=== PATIENT | female | born 2000 | race Caucasian/White ===

== ENCOUNTER → 2022-04-07 09:54 | Outpatient (CLI) | payer SELFPAY ==
--- NOTE | ~2022-04-07 | US_ITS ---
EXAMINATION: US OB <= 14 weeks fetus DATE: 04/07/2022 10:21 INDICATION: Pelvic pain for 2 weeks TECHNIQUE: Real-time transabdominal and transvaginal obstetric ultrasound. FINDINGS: No prior studies for comparison. The uterus measures 12.7 x 5.4 x 8.0 cm. There is an intrauterine gestational sac, with pole id entified. There is a subchorionic hemorrhage measuring 2.5 x 5.1 x 1.1 cm. The crown rump length giovanny ures 1.75 cm, which correlates with a estimated gestational age of 8 weeks 1 day. heart tones are identified measuring 169 bpm. The ovaries are within normal limits. IMPRESSION: 1. SL IUP with an EGA of 8 weeks, 1 days (EDC by current ultrasound of 11/16/2022). 2: Subchorionic hemorrhage measuring 5.1 x 2.5 x 1.1 cm. Reviewed, dictated and finalized at location B. IMPRESSION: 1. SL IUP with an EGA of 8 weeks, 1 days (EDC by current ultrasound of 11/17/19). 2: Subchorionic hemorrhage measuring 5.1 x 2.5 x 1.1 cm.
== END ==
PROVIDERS: PCP Advanced Practice Midwife; Visit Provider Advanced Practice Midwife
DX: R10.2 Pelvic and perineal pain (principal); Z34.91 Encounter for supervision of normal pregnancy, unspecified, first trimester; Z3A.01 Less than 8 weeks gestation of pregnancy
CPT/HCPCS: 76801

== ENCOUNTER → 2022-04-21 09:09 | Outpatient (CLI) | payer OTHER, SELFPAY ==
--- NOTE | ~2022-04-21 | US_ITS ---
EXAMINATION: US OB <= 14 weeks fetus DATE: 04/21/2022 09:30 INDICATION: Subchorionic hematoma TECHNIQUE: Real-time pelvic ultrasound utilizing both a transvaginal and transabdominal probe was pe rformed. The interpreting radiologist was not present for the study. COMPARISON: 04/07/2022 FINDINGS: The uterus measures 13.5 x 6.3 x 10.0 cm cm. There is an intrauterine gestational sac. A yolk sac an d pole are identified. The crown rump length measures 3.2, which correlates with an estimated g estational age of 10 weeks and 1 days which is exactly concordant with estimated gestational age base d upon the prior ultrasound. heart motion is identified measuring 176 beats per minute (bpm) by M-mode Doppler. Persistent 3.6 x 1.0 x 1.3 cm hypoechoic subchorionic hematoma along the right cepha lad margin of the gestational sac. The right ovary measures 3.0 x 1.9 x 2.4 cm. The left ovary measures 2.5 x 1.9 x 2.2 cm. Vascular darline w identified in both ovaries on color Doppler There is no free fluid in the pelvis. IMPRESSION: 1. Single living fetus with heart rate of 176 bpm. 2. Persistent small subchorionic hematoma. 3. Gestational age by ultrasound of 10 weeks 1 day(s) with ultrasound estimated date of delivery ([facility] ) of 11/16/2022. Reviewed, dictated and finalized at location B. IMPRESSION: 1. Single living fetus with heart rate of 176 bpm. 2. Persistent small subchorionic hematoma. 3. Gestational age by ultrasound of 10 weeks 1 day(s) with ultrasound estimated date of delivery ([place]) of 11/16/2022.
== END ==
PROVIDERS: PCP Obstetrics & Gynecology Gynecology; Visit Provider Obstetrics & Gynecology Gynecology
DX: O20.8 Other hemorrhage in early pregnancy (principal); Z3A.10 10 weeks gestation of pregnancy
CPT/HCPCS: 76801

== ENCOUNTER → 2022-05-08 13:06 | Outpatient (CLI) | payer OTHER, SELFPAY ==
--- NOTE | ~2022-05-08 | US_ITS ---
EXAMINATION: US OB <= 14 weeks fetus DATE: 05/08/2022 13:27 INDICATION: Follow-up subchorionic hematoma TECHNIQUE: Real-time transabdominal obstetric ultrasound. FINDINGS: Ultrasound dated 04/21/2022 The uterus measures 12.7 x 10.1 x 10 cm. There is an intrauterine gestational sac, with pole id entified. The crown rump length measures 6.56 cm. heart tones are identified measuring 145 BPM . Small persistent subchorionic hemorrhage measuring 12 x 6 x 5 mm. There are ovaries are normal. IMPRESSION: 1. SL IUP with an EGA of 12 weeks, 4 days (EDC by initial ultrasound of 11/16/2022). 2: Small subchorionic hemorrhage measuring 12 x 6 x 5 mm. Reviewed, dictated and finalized at location B. IMPRESSION: 1. SL IUP with an EGA of 12 weeks, 4 days (EDC by initial ultrasound of 023). 2: Small subchorionic hemorrhage measuring 12 x 6 x 5 mm.
== END ==
LOC: EXPGOSHRAD 13:08
PROVIDERS: PCP Obstetrics & Gynecology Gynecology; Visit Provider Obstetrics & Gynecology Gynecology
DX: O36.8911 Maternal care for other specified fetal problems, first trimester, fetus 1 (principal); Z3A.12 12 weeks gestation of pregnancy
CPT/HCPCS: 76801

== ENCOUNTER → 2022-05-29 09:55 | Outpatient (CLI) | payer OTHER, SELFPAY ==
--- NOTE | ~2022-05-29 | US_ITS ---
US OB limited 05/29/2022 10:22 Indication: Follow-up subchorionic hematoma Procedure: High-resolution Limited obstetrical ultrasound Comparison: 05/08/2022 Findings: There is a single living intrauterine in variable presentation. heart rate is 168 BPM. Placenta is anterior. There are 2 small subchorionic hemorrhages measuring 1.4 x 0.4 x 1 cm and the second measuring 1.4 x 0.9 x 0.4 cm. Impression: 1: Small subchorionic hemorrhages. 2: Single living intrauterine in variable presentation. Reviewed, dictated and finalized at location A. R TRAINER Impression: 1: Small subchorionic hemorrhages. 2: Single living intrauterine in variable presentation.
== END ==
PROVIDERS: PCP Obstetrics & Gynecology Gynecology; Visit Provider Obstetrics & Gynecology Gynecology
DX: O36.8911 Maternal care for other specified fetal problems, first trimester, fetus 1 (principal)
CPT/HCPCS: 76815

== ENCOUNTER 2022-06-02 12:26 | Emergency (ER) | payer OTHER, SELFPAY ==
[2022-06-02 13:00] VITALS: BP 126/65; PULSE 88; RESP 18; TEMP 36.6; O2SAT 100
--- NOTE | 2022-06-02 13:05 | ED.URI ---
HPI - URI/Sore Throat General Chief Complaint: Upper Respiratory Infection Stated Complaint: Coughing, Chest Pain,SOB Time Seen by Provider: 06/02/22 12:29 Source: patient Mode of arrival: ambulatory Limitations: no limitations History of Present Illness HPI Narrative: Ms. Ortiz is a 21-year-old female patient presenting to the clinic today with complaints of coughing, chest pressure, and shortness of breath since yesterday. She reports she has had nasal congestion x1 week. She is 16 weeks . She denies any fever but does have a slight sore throat. She is able to speak in full sentences in her SpO2 is 100% on room air MD elicited complaint: cough and other ( shortness of breath and chest pain) Related Data Home Medications Medication Instructions Recorded Confirmed prenat.vits,josé luis,[id number] 1 tablet PO DAILY 05/27/22 06/02/22 Allergies Allergy/AdvReac Type Severity Reaction Status Date / Time Fentanyl Allergy Unknown uknown Uncoded 06/02/22 13:11 Review of Systems Review of Systems: Pertinent positives per HPI. Patient denies any fever, chills, rash, headache, visual changes, dizziness, cough, shortness of breath, chest pain, palpitations, nausea, vomiting, diarrhea, constipation, abdominal pain, or any urinary issues. [facility] Past Medical History Medical History Anemia Family History Family History Grandparent Breast cancer Bone cancer Hypertension Heart problem Social History Social History Smoking status: Smoker, status unknown Tobacco type: cigarettes and e-cigarettes/vaping Smoking end date: 05/22/20 Alcohol intake: current Alcohol use details: occassionally Lack of Transportation: No Lack of Food: Never True Current Housing: I Have Housing Concerned About Future Housing: No Difficulty Paying Gas/Electric Bills: No Difficulty Paying for Meds: No Currently Unemployed: No Education: High School Diploma/GED Difficulty w/ Childcare or Family Care: No Comments At the time of my signature, I reviewed and agree with the nursing past medical, surgical, social, and family history. There is no relevant family history pertinent to the patient complaint. Exam Narrative: General: Well-developed, well nourished, ill-appearing Head: Normocephalic, atraumatic Eyes: Pupils equally round and reactive to light bilaterally, EOM intact, sclera and conjunctive clear, no discharge, lids normal Ears: TMs intact and dull, ear canals clear, no drainage, grossly hearing normal. Nose: Nares patent, clear nasal discharge, no inflammation, no sinus tenderness. Mouth: Oral pharynx without lesions or masses, good dentition, MMM. Neck: Supple, trachea midline, no enlargement of anterior or posterior cervical nodes, no thyroid masses or goiter palpable. Cardio: Regular rate and rhythm, s1 and s2 normal, no murmur appreciated. Resp: Clear to auscultation bilaterally, no rhonchi, rales, wheezing or rubs Course Course Emergency Course: Portions of this record may have been created with voice recognition software. Level of Care: Express Care Visit Vital Signs Vital signs: Vital Signs Temperature 36.6 C 06/02/22 13:00 Pulse Rate 88 06/02/22 13:00 Respiratory Rate 18 06/02/22 13:00 Blood Pressure 126/65 06/02/22 13:00 Pulse Oximetry 100 06/02/22 13:00 Oxygen Delivery Room Air 06/02/22 13:00 Temperature 36.6 C 06/02/22 13:00 Pulse Rate 88 06/02/22 13:00 Respiratory Rate 18 06/02/22 13:00 Blood Pressure 126/65 06/02/22 13:00 Pulse Oximetry 100 06/02/22 13:00 Oxygen Delivery Room Air 06/02/22 13:00 Vital signs reviewed MDM - URI/Sore Throat MDM Narrative Medical decision making narrative: at the time of visit patient is resting comfortably on
--- NOTE | 2022-06-02 13:26 | ECG_ITS ---
Measurements Intervals [place] Rate: 69 P: 2 NV: 128 QRS: 51 QRSD: 87 T: 25 QT: 370 QTc: 399 Interpretive Statements SINUS RHYTHM WITH SINUS ARRHYTHMIA BASELINE WANDER- V4-V5 NORMAL ECG NO PREVIOUS ECG AVAILABLE FOR COMPARISON Electronically Signed On 06-03-2022 8:50:11 MOLD STACKER by Mark Dorsey D.O.
== END 2022-06-02 13:43 | disposition home or self-care (01) ==
PROVIDERS: Emergency Provider Nurse Practitioner Family
DX: J10.1 Influenza due to other identified influenza virus with other respiratory manifestations (principal); F17.210 Nicotine dependence, cigarettes, uncomplicated
CPT/HCPCS: 87804; 93005; 99213; G0463

== ENCOUNTER → 2022-06-25 10:08 | Outpatient (CLI) | payer OTHER, SELFPAY ==
--- NOTE | ~2022-06-25 | US_ITS ---
EXAMINATION: US OB /maternal detail DATE: 06/25/2022 10:54 INDICATION: Second trimester anatomic survey, subchronic hematoma follow-up TECHNIQUE: Real-time ultrasound of the pelvis was performed. COMPARISON: 05/29/2022 FINDINGS: There is a single living fetus in vertex presentation. The placenta is anterior and 5.4 cm from the i nternal cervical os. A 1.1 x 0.3 x 0.8 cm hypoechoic area is seen adjacent to the placenta which demo nstrates decreased in size. The cervical length is 4.6 cm. heart rate is 150 beats per minute ( bpm). cardiac activity and movement are noted. The amniotic fluid index is subjectively normal. The following anatomy was identified as normal: 4 chamber heart 3 vessel cord cord insertion kidneys urinary bladder stomach spine diaphragm ventricles cisterna magna cerebellum The following biometric data were obtained: Biparietal diameter (BPD): 4.4 cm; head circumference (HC): 16.2 cm; abdominal circumference (AC): 13 .4 cm; femur length (FL): 2.9 cm. These measurements are concordant. Estimated weight is 269 g +/- 40 g, which correlates with the 24th percentile when 11/16/2022 is used as estimated date of delivery. As single measurements, these parameters are each equal to the following estimated gestational ages w ith ranges of +/- 2 standard deviations: BPD: 19 weeks 2 days +/- 1 weeks 5 days. HC: 19 weeks 0 days +/- 1 weeks 3 days. AC: 18 weeks 6 days +/- 2 weeks 0 days. FL: 19 weeks 1 days +/- 1 weeks 6 days. estimated gestational age based solely on measurements from this exam is 19 weeks 1 days +/- 1 weeks 2 days. IMPRESSION: 1. Single living fetus in vertex presentation. 2. Estimated weight is 269 g +/- 40 g, which correlates with the 24th percentile when 11/16/2022 is used as estimated date of delivery. 3. Single persistent small hypoechoic area adjacent to the placenta with decrease in size, likely res olving subchorionic hemorrhage. Reviewed, dictated and finalized at location A. OGLYCERIN SUPERVISOR IMPRESSION: 1. Single living fetus in vertex presentation. 2. Estimated weight is 269 g +/- 40 g, which correlates with the 24th per centile when 11/16/2022 is used as estimated date of delivery. 3. Single persistent small hypoechoic area adjacent to the placenta with decrea se in size, likely resolving subchorionic hemorrhage.
== END ==
LOC: EXPGOSHRAD 10:09
PROVIDERS: PCP Advanced Practice Midwife; Visit Provider Advanced Practice Midwife
DX: O36.8920 Maternal care for other specified fetal problems, second trimester, not applicable or unspecified (principal); O36.8910 Maternal care for other specified fetal problems, first trimester, not applicable or unspecified
CPT/HCPCS: 76805

== ENCOUNTER 2022-11-10 05:06 | Inpatient (IN) | payer MEDICAID, SELFPAY ==
[2022-11-10] VITALS (37 sets, daily range): BP systolic 86–146; BP diastolic 45–114; PULSE 48–142; RESP 16–18; TEMP 36.3–36.9; O2SAT 99–100; BMI 31.6
[2022-11-10] MEDS: LACTATED RINGERS 1,000 ML 125 ML IV CONT ×2 (05:30→06:45)
[2022-11-10 05:36] LABS: Basophils Absolute Auto 0.1 K/mm3 (0.0-0.1); Basophils Percent Auto 0.7 % (0.2-1.2); Eosinophils Absolute Auto 0.1 K/mm3 (0-0.3); Eosinophils Percent Auto 0.9 % (0-4.4); Hematocrit 37.3 % (37.0-47.0); Hemoglobin 12.1 g/dL (12.0-15.0); Immature Granulocyte Absolute 0.07 K/mm3 (0.00-0.031); Immature Granulocyte Percent A 0.7 % (0-0.5); Lymphocytes Absolute Auto 2.58 K/mm3 (0.9-3.2); Lymphocytes Percent Auto 26.4 % (18.3-44.2); Mean Corpuscular HGB Conc 32.4 g/dl (32-36); Mean Corpuscular Hemoglobin 28.9 pg (26-34); Mean Platelet Volume 11.3 fl (7.4-10.4); Monocytes Absolute Auto 0.4 K/mm3 (0.1-0.6); Monocytes Percent Auto 4.1 % (2.6-8.5); Neutrophils Absolute Auto 6.6 K/mm3 (1.3-6.7); Neutrophils Percent Auto 67.2 % (45.5-73.1); Platelet Count Result 197 k/mm3 (150-375); Red Blood Count 4.19 M/mm3 (4.2-5.4); Red Cell Distribution Width 15.9 % (11.5-14.5); White Blood Count 9.8 K/mm3 (4.5-10.0)
[2022-11-10] MEDS: OXYTOCIN 30 UNITS/NS 500 ML 30 UNITS/500 ML BAG IV CONT (06:45)
--- NOTE | 2022-11-10 07:09 | WPDOBADMIT ---
Obstetrics - Admit Note Admission Note: record reviewed. No pertinent additions to the history and/or any subsequent changes in the physical findings that are not consistent with the expected course of the were found. Additions to the history and/or subsequent changes in the physical findings follow. None.
--- NOTE | 2022-11-10 07:09 | PM.OBPNLAB ---
Pain Control Date/time seen: 11/10/22 07:00 Pain control: tolerating well Pelvic Exam Dilation (cm): 4 (4.5) Effacement (%): 80 station: -2 Amniotic membrane status: Intact Comments: head well applied to cervix Contractions Contraction pattern: Irregular Status status: Category l Assessment and Plan Pitocin rate (mU/min): 2 Assessment: induction ongoing Comments: CNM to bedside. Discussed plan of care an option for amniotomy. Discussed risks, benefits, and expectations of breaking water. Patient is agreeable. Amniotomy performed and there was a small return of clear amniotic fluid. Patient tolerated procedure well. Anticipate vaginal .
--- NOTE | 2022-11-10 07:16 | WPDANESEPP ---
Anes - Eval Pre Procedure Procedure: labor epidural Date/Time: 11/10/22 07:16 Surgeon: taj Preop Diagnosis: pain during labor Pre Op Diagnosis: IOL Patient Data Age: 22 Gender: F Height: 1.57 m Weight: 78.6 kg Last Vital Signs Temp 36.3 C L 11/10/22 06:50 Pulse 70 11/10/22 07:15 BP 108/62 11/10/22 07:15 Allergies Allergy/AdvReac Type Severity Reaction Status Date / Time Fentanyl Allergy Unknown Itching Uncoded 10/27/22 12:34 Home Medications Medication Instructions Recorded Confirmed Type prenat.vits,josé luis,[id number] 1 tablet PO DAILY 05/27/22 06/02/22 History ergocalciferol (vitamin D2) 1,250 1,250 mcg PO 2XW 10/27/22 10/27/22 History mcg (50,000 unit) capsule (Vitamin D2) escitalopram oxalate 20 mg tablet 20 mg PO DAILY 10/27/22 10/27/22 History (Lexapro) ferrous sulfate 200 mg (40 mg 200 mg PO BID 10/27/22 10/27/22 History iron) tablet Laboratory Tests 11/10/22 05:14 WBC 9.8 K/mm3 (4.5-10.0) RBC 4.19 L M/mm3 (4.2-5.4) Hgb 12.1 g/dL (12.0-15.0) Hct 37.3 % (37.0-47.0) MCV 89.0 fl (80-100) MCH 28.9 pg (26-34) MCHC 32.4 g/dl (32-36) RDW 15.9 H % (11.5-14.5) Plt Count 197 k/mm3 (150-375) MPV 11.3 H fl (7.4-10.4) Immature Gran % (Auto) 0.7 H % (0-0.5) Neut % (Auto) 67.2 % (45.5-73.1) Lymph % (Auto) 26.4 % (18.3-44.2) [place] % (Auto) 4.1 % (2.6-8.5) Eos % (Auto) 0.9 % (0-4.4) Baso % (Auto) 0.7 % (0.2-1.2) Lymph # (Auto) 2.58 K/mm3 (0.9-3.2) [place] # (Auto) 0.4 K/mm3 (0.1-0.6) Eos # (Auto) 0.1 K/mm3 (0-0.3) Baso # (Auto) 0.1 K/mm3 (0.0-0.1) Abs Immat Gran (auto) 0.07 H K/mm3 (0.00-0.031) Absolute Neuts (auto) 6.6 K/mm3 (1.3-6.7) Absolute Nucleated RBC 0.0 K/mm3 (0.0-0.012) Nucleated RBC % 0.0 % (0.0-0.2) RPR Pending Blood Type A Positive Antibody Screen Negative Patient hx anesthesia problems: none Family hx anesthesia problems: none Results Review: All pre-operative results and documents have been reviewed as part of the pre-operative evaluation. FOR[facility]LY [facility], [facility] Past Medical History Medical History (Updated 11/10/22 @ 07:17 by Evelyn Whitaker CRNA) Anemia Depression Family History Family History (Updated 10/27/22 @ 12:35 by Keren Nur RN) Grandparent Bone cancer Heart problem Breast cancer Hypertension Prostate carcinoma Brain aneurysm Social History Social History Smoking status: Former smoker Tobacco type: e-cigarettes/vaping Second hand tobacco smoke exposure: No Smoking end date: 05/22/20 Alcohol intake: current Alcohol use details: occassionally Substance use: never Lack of Transportation: No Lack of Food: Never True Current Housing: I Have Housing Concerned About Future Housing: No Difficulty Paying Gas/Electric Bills: No Difficulty Paying for Meds: No Currently Unemployed: No Education: Associate Degree Difficulty w/ Childcare or Family Care: No Spiritual care concerns: No Exam Day of Procedure 11/10/22 07:16
[2022-11-10 07:46] LABS: Rapid Plasma Reagin Non-Reactive (NonReactive)
--- NOTE | 2022-11-10 10:59 | PM.OBPRVD ---
OB - Delivery Note Procedure Delivery date: 11/10/22 Procedure: Induction method: Per Pitocin Protocol Delivery augmentation: Rupture of Membranes Delivery monitor: External FHT and External Uterine Route of delivery: Episiotomy description: None Laceration Description: None Specimen: No Quantitative Blood Loss (ml): 100 Anesthesia type: None Disposition: Floor Baby Date of : 11/10/22 Time of : 10:44 Weeks of gestation at delivery: 39 Infant gender: Female presentation: vertex position: Left Occiput Posterior Placenta delivery description: Spontaneous Cord Vessel Description: 3 Vessels, Clamped/Cut and Delayed Cord Clamping score one minute: 9 score five minutes: 9 Narrative: patient arrived for induction of labor at term. she made very quick progress to complete dilation. She pushed well with contractions and brought the head to a crown. She delivered the head in the occiput posterior position over an intact perineum. There was immediate restitution and delivery of both shoulders followed by the remainder of the infant. The was placed on the maternal abdomen and dried and stimulated. After 1 minute of life the cord was doubly clamped and cut. Cord gases, cord blood, and cord segment were obtained. The vagina and perineum were inspected and found to be intact. The placenta delivered without incident and there was excellent uterine tone. All delivery counts correct. Mother and baby skin to skin in the delivery room. weight unavailable at the time of this note.
--- NOTE | 2022-11-10 11:05 | PM.OBDSVD ---
DS: Admitting Diagnosis Discharge Date 11/12/2022 Admitting Diagnosis IUP at 39 weeks Hx Depression IOL DS: Discharge Diagnosis Discharge Diagnosis (1) Depression: Code(s): F32.A - Depression, unspecified Status: Acute (2) Mother currently breast-feeding: Code(s): Z39.1 - Encounter for care and examination of lactating mother Status: Acute (3) (normal spontaneous vaginal delivery): Code(s): O80 - Encounter for full-term uncomplicated delivery Status: Acute OB - DS: Summary OB Procedures : Ultrasound OB Procedures Intrapartum: Spontaneous Vag Delivery OB Procedures: : None Peripartum Data Infant Delivery Method: Natural Vaginal Laceration Description: None Episiotomy description: None complications: none Status at Discharge Functional status at discharge: independent ambulation Overall status at discharge: patient is progressing back to baseline Time Spent with Patient Time attestation: Total time spent providing and/or coordinating discharge services: Exam Narrative: Alert and oriented. Mood is pleasant and cooperative- stable for pt. Urinating without difficulty. Denies passing any large clots. Perineum with no edema. Fundus firm and below umbilicus. +bonding observed Const: General: cooperative, healthy appearing, no acute distress and alert Orientation/consciousness: patient oriented x3 Limitations: no limitations Resp: Effort & Inspection: normal respiratory effort Auscultation: clear to auscultation bilaterally Cardio: Rate: regular rate GI: Inspection: normal to inspection Neuro: General: patient oriented x3 Extrem: General: normal to inspection Psych: Appearance: grossly normal Mental Status: mental status grossly normal Affect: normal affect Thought process: Normal thought process present DS: Data Data Completed and Pending Labs on day of discharge: Labs from last 24 hours 11/10/22 05:14 WBC 9.8 RBC 4.19 L Hgb 12.1 Hct 37.3 MCV 89.0 MCH 28.9 MCHC 32.4 RDW 15.9 H Plt Count 197 MPV 11.3 H Immature Gran % (Auto) 0.7 H Neut % (Auto) 67.2 Lymph % (Auto) 26.4 [place] % (Auto) 4.1 Eos % (Auto) 0.9 Baso % (Auto) 0.7 Lymph # (Auto) 2.58 [place] # (Auto) 0.4 Eos # (Auto) 0.1 Baso # (Auto) 0.1 Abs Immat Gran (auto) 0.07 H Absolute Neuts (auto) 6.6 Absolute Nucleated RBC 0.0 Nucleated RBC % 0.0 RPR Non-reactive Blood Type A Positive Antibody Screen Negative Discharge Plan Discharge Attending physician on discharge: Jennie White Discharging Clinician: Gail Arroyo Anticipated Discharge Date/Time: 11/12/22 11:00 Patient Disposition: Home, Self-Care Activity: may shower Diet: as tolerated Wound Care Instructions: follow printed instructions Discharge Instructions: Education: Mom and Baby Guide Given to: Mother Follow-Up: Call your delivering provider's office for an appointment to be seen in: 4 Week Mom and baby should come to the [facility] for the follow-up appointment. Appointment Date/Time: November 13, 2022 at 11:00 am What to expect at your follow-up visit: Blood Pressure Check Call [phone] if you are unable to keep your appointment time. BREAST CARE: * Wear a snug supportive bra. * For engorgement discomfort: Breast Feeding: * Apply warm moist washcloths * Express milk as needed to relieve engorgement * Wear loose clothing Bottle Feeding: * May apply ice packs * For sore nipples: * Identify correct latch-on * Apply warm moist washcloths before and after nursing * Air dry nipples after nursing * May apply Lansinoh cream to nipples PERINEAL CARE: * Until bleeding stops, use your josué bottle after urinating * Change your pad frequently throughout the day * You may take sitz baths several times a day (fill your bathtub with
[2022-11-10] MEDS: OXYTOCIN 30 UNITS/NS 500 ML 30 UNITS/500 ML BAG 125 UNITS IV CONT (11:17)
[2022-11-10] MEDS: ACETAMINOPHEN 325 MG TABLET 650 MG PO (11:30)
[2022-11-10] MEDS: WITCH HAZEL 40 PADS 1 PAD TOPICAL (13:31)
[2022-11-10] MEDS: BENZOCAINE 20% AER SPR (*SP) 56 GM CAN 1 SPRAY TOPICAL (13:32)
--- NOTE | 2022-11-10 15:47 | PC.NURSE ---
[id number] Introductions were made, then consulted with patient to assess needs related to . Mother led the conversation with her?plans to feed?her infant and the?experience so far. Resources provided for inpatient and name written on the white board. Mother voiced understanding of information and is open to assistance at this time to see if will go to the breast. Father of baby is holding infant using a pacifier. Encouraged understanding of the benefits of skin to skin (demonstrating unwrapping and placing upright on her chest), stimulating with massage touch, changing positions to encourage wakefulness, how to watch for early feeding cues, responsive feeding, feeding on demand (aiming for 8-12 times in 24 hours, about every 2-3 hours), milk production, building/maintaining a milk supply, duration of feeding, signs of adequate intake/output and how to record on the feeding sheet. Reviewed positioning and ear, shoulder, hip alignment, supporting the breast to facilitate a deep latch, asymmetrical latch (off-center), leading with the chin with a big, open, wide gape and body close to mother. Infant latched optimally to the right and left breast in football and cross cradle position. Infant doesn't maintain latch. Mother was able to express some colostrum. Infant demonstrated gaggy reflux after a few sucks on the left breast. Nipple care reviewed with optimal latch and good positioning. Reviewed good handwashing when or touching the breast/nipples to prevent infection. Resources used to facilitate learning were used with the QR codes and tool. Mother has a successful history with her other two children. RN encouraged rest and [id number] as there is tension with a fussy baby at times. Mother is quiet, however; nods her head in understanding of education and encouragement of skin to skin, stimulating with massage touch, responsive feedings, hand expressed colostrum, talking to infant to encourage if it has been 2 -2.5 hours since the start of the last , to call if does not latch, or if there is discomfort with . Reported to the primary RN.
[2022-11-10] MEDS: IBUPROFEN 600 MG TABLET PO (16:30)
[2022-11-10] MEDS: DOCUSATE SODIUM 100 MG CAPSULE PO (16:30)
[2022-11-10] MEDS: ESCITALOPRAM OXALATE 10 MG TABLET 20 MG PO (22:20)
[2022-11-11 04:54] LABS: Hematocrit 31.4 % (37.0-47.0)
[2022-11-11 06:56] VITALS: BP 119/72; PULSE 69; RESP 16; TEMP 36.5; O2SAT 98
--- NOTE | 2022-11-11 08:10 | PM.OBPNVD ---
OB - PN: Subj Subjective Date/time seen: 11/11/22 0735 Patient comments: no complaints and pain well controlled baby status: doing well and nursing well [place] feeding status: exclusively breast feeding Narrative: PPD1 from unmedicated . Up to BR without issues. Denies passing any large clots. Denies dizziness. OB - PN: Obj Data Labs 11/11/22 04:21 Labs: Laboratory Results - last 24 hr 11/11/22 04:21 Hgb 10.0 L Hct 31.4 L OB - PN A/P Plan day: 1 Plan: routine care Comments: Pt unsure if she would like to be DC home today or tomorrow. Discussed plan of care. Pt to notify staff member if she desires discharge. Time Spent With Patient Time: Total time spent is greater than 50% in coordination of care (as documented) at patient's floor/unit and/or counseling patient: Review of Systems Review of Systems: All systems reviewed & are unremarkable except as noted in HPI and below Exam Narrative: Alert and oriented. Mood is pleasant and cooperative. Urinating without difficulty. Denies passing any large clots. Perineum with minimal edema. Fundus firm and below umbilicus. Const: General: cooperative, healthy appearing, no acute distress and alert Orientation/consciousness: patient oriented x3 Limitations: no limitations Resp: Effort & Inspection: normal respiratory effort Auscultation: clear to auscultation bilaterally Cardio: Rate: regular rate GI: Inspection: normal to inspection Neuro: General: patient oriented x3 Extrem: General: normal to inspection Psych: Appearance: grossly normal Mental Status: mental status grossly normal Affect: normal affect Thought process: Normal thought process present
--- NOTE | 2022-11-11 08:38 | PC.NURSE ---
On 11/11/22, the student, Elke Francois, provided care and completed [facility] documentation on this patient. I have reviewed the student's documentation and agree with the findings.
[2022-11-11] MEDS: DOCUSATE SODIUM 100 MG CAPSULE PO ×2 (09:05→17:02)
[2022-11-11] MEDS: IBUPROFEN 600 MG TABLET PO ×2 (09:05→14:56)
[2022-11-11] MEDS: MULTIVIT/MIN/PREN/FOL AC/IRON TABLET 1 TAB PO (09:05)
--- NOTE | 2022-11-11 10:26 | PC.NURSE ---
0820 - Purposefully rounded to assess needs. Mother is demonstrating on the left breast and denies pain. Offer of assistance offered if mother has any questions or concerns. Reported to the Primary RN.
[2022-11-11] MEDS: ACETAMINOPHEN 325 MG TABLET 650 MG PO (12:07)
[2022-11-11 20:37] VITALS: BP 110/69; PULSE 54; RESP 16; TEMP 36.7; O2SAT 99
[2022-11-11] MEDS: ESCITALOPRAM OXALATE 10 MG TABLET 20 MG PO (21:53)
[2022-11-12] MEDS: ACETAMINOPHEN 325 MG TABLET 650 MG PO ×2 (01:20→09:32)
--- NOTE | 2022-11-12 07:46 | PM.OBPNVD ---
OB - PN: Subj Subjective Date/time seen: 11/12/22 07:46 Patient comments: no complaints and pain well controlled baby status: doing well and nursing well [place] feeding status: exclusively breast feeding Narrative: Post day 2 from . Reports infant feeding well. OB - PN: Obj Data Labs 11/11/22 04:21 OB - PN A/P Plan day: 2 Plan: discharge home and follow up 6 weeks Comments: pt plans lyletta for contraception at 10 weeks . Time Spent With Patient Time: Total time spent is greater than 50% in coordination of care (as documented) at patient's floor/unit and/or counseling patient: Review of Systems Review of Systems: All systems reviewed & are unremarkable except as noted in HPI and below Exam Narrative: Alert and oriented. Mood is pleasant and cooperative- stable for pt. Urinating without difficulty. Denies passing any large clots. Perineum with no edema. Fundus firm and below umbilicus. +bonding observed Const: General: cooperative, healthy appearing, no acute distress and alert Orientation/consciousness: patient oriented x3 Limitations: no limitations Resp: Effort & Inspection: normal respiratory effort Auscultation: clear to auscultation bilaterally Cardio: Rate: regular rate GI: Inspection: normal to inspection Neuro: General: patient oriented x3 Extrem: General: normal to inspection Psych: Appearance: grossly normal Mental Status: mental status grossly normal Affect: normal affect Thought process: Normal thought process present
[2022-11-12 08:09] VITALS: BP 108/70; PULSE 65; RESP 16; TEMP 36.7; O2SAT 100
--- NOTE | 2022-11-12 09:00 | PC.NURSE ---
PT introductions made and plan of care discussed per post , pain management, breast feeding, daily care activitiesand pending discharge to home. PT and fob both recipients of such instructions per one to one discussion, mom baby care guide and demonstrations per shift. No barriers to learning identified at this time. PT verbalized understanding of such care.
[2022-11-12 09:31] VITALS: PULSE 65; RESP 16; O2SAT 100
[2022-11-12] MEDS: MULTIVIT/MIN/PREN/FOL AC/IRON TABLET 1 TAB PO (09:31)
[2022-11-12] MEDS: DOCUSATE SODIUM 100 MG CAPSULE PO (09:31)
[2022-11-12] MEDS: IBUPROFEN 600 MG TABLET PO (09:31)
--- NOTE | 2022-11-12 12:53 | PC.NURSE ---
PT discharged to home ambulatory accompanied by fob and infant and taken to waiting car. Follow up appt confirmed
[2022-11-13 11:12] VITALS: BP 118/68; PULSE 55; RESP 18; TEMP 37.2; O2SAT 97
== END 2022-11-12 12:53 | disposition home or self-care (01) | DRG 560 ==
LOC: ANHLDR 11:08 → ANHOB2 13:41
PROVIDERS: Admitting Provider Obstetrics & Gynecology Gynecology; Referring Provider Advanced Practice Midwife; Visit Provider Obstetrics & Gynecology Gynecology
DX: O99.344 Other mental disorders complicating childbirth (principal); F32.A Depression, unspecified; O62.3 Precipitate labor; Z37.0 Single live birth; Z3A.39 39 weeks gestation of pregnancy
CPT/HCPCS: 36415; 85014; 85018; 85025; 86592; 86850; 86900; 86901; A9270; J2590; J2795; J7120